=== PATIENT | female | born 1995 | race Hispanic/Latino ===

== ENCOUNTER 2020-06-05 16:45 | Emergency (ER) | payer OTHER ==
[2020-06-05] MEDS ORDERED: ACETAMINOPHEN-CODEINE 300/30MG TAB ONE (16:56)
[2020-06-05 17:14] LABS: RAPID GROUP A STREP NEGATIVE (NEGATIVE)
== END 2020-06-05 17:58 | disposition home or self-care (01) ==
LOC: EDH 16:45
DX: J06.9 Acute upper respiratory infection, unspecified (principal); Z20.822 Contact with and (suspected) exposure to COVID-19
CPT/HCPCS: 71045; 87426; 87804; 87880